=== PATIENT | male | born 1960 | race Caucasian/White ===

== ENCOUNTER → 2018-09-14 | Outpatient (CLI) | payer OTHER | LOC: YCFC.O 09-13 11:41 | PROVIDERS: ATTEND Family Medicine | DX: Z00.00 Encounter for general adult medical examination without abnormal findings (principal); F17.200 Nicotine dependence, unspecified, uncomplicated; R00.1 Bradycardia, unspecified ==

== ENCOUNTER → 2018-10-25 | Outpatient (CLI) | payer OTHER ==
--- NOTE | 2018-10-25 16:53 | CT ---
Procedure: CT LUNG SCREENING Exam Date: 10/25/2018. Ordering Provider: Kwasi Boyer Clinical Indication: PERSONAL HISTORY OF TOBACCO USE 40 pack year cigarette smoking. Current cigarette smoker. This patient meets eligibility criteria for low-dose CT lung cancer screening. Comparison: None. Technique: Using a multislice scanner, sequential helical axial imaging was obtained in the thorax, 2.5 mm thickness, 2.5 mm separation, from the level of the thoracic inlet through the lung bases without IV contrast. A low dose protocol was utilized for BMI less than 30: BMI: 20.3.. CTDI: 1.76 mGy. 120. kVp. 45 mA. DLP: 65.57 mGy-centimeters. 2D sagittal and coronal reconstructed images, 6.0 mm thickness, were obtained. This exam was performed according to our departmental dose optimization program which includes use of automated exposure control, adjustment of the mA and/or kV according to patient size and/or use of iterative reconstruction technique. Nodule measurements under 10 mm are given as mean value of 3 axes diameters. FINDINGS: Lungs and large airways: Bilateral small dilated airspaces in the upper lung downs. Subpleural posterior 5 nodule right upper lobe. Irregular region of increased density, with solid component measuring approximately 2.1 x 1.4 cm. Scarring versus mass versus infiltrate posterior medial recess of the right lower lobe on axial series 2, images 102-105. Minimal extension to the pleura. Pleural-parenchymal scarring inferior lingula. Pleura and space: Apical pleural thickening. Bilateral scattered focal pleural thickening. No effusion or pneumothorax. Mediastinum and moriah: evaluation limited by low dose technique and lack of IV contrast. No enlarged nodes or dominant soft tissue masses. Heart and great vessels: Coronary artery calcification. Minimal aortic and brachiocephalic vessel calcification. Chest wall, lower neck, axillae: Evaluation also limited by same factors as described above. Bilateral axillary lymph nodes mostly appearing nonreactive with 2-3 reactive appearing nodes in the right axilla and 1-2 reactive appearing nodes in the left axilla. These nodes range in size from 2.5 cm to 1 cm. Upper abdomen: Evaluation limited by low-dose technique. No free air or fluid in the included peritoneal space. Osseous structures: Evaluation limited by low dose MIP technique. Minimal levoscoliosis upper thoracic spine and minimal spondylosis. No lytic or blastic lesions. IMPRESSION: 1. Mass versus infiltrate versus scar in the posterior recess of the right lower lobe with solid component measuring approximately 2.1 cm. Minimal dilated airspaces in the bilateral upper lobes. Calcified granuloma. [facility] Best Practice recommendations:. Please see below for Lung RADS category and FOLLOW-UP.* *Lung RADS category Category 4BS - Very Suspicious - findings for which additional diagnostic testing and/or tissue sampling is recommended (greater than 15% malignancy probability). Nodules: Solid nodule(s) 15mm (1767.1 mm3) or larger at baseline, OR new or growing, and 8mm (268.1 mm3) or larger solid nodule. Part solid nodule(s) with a solid component 8 mm (268.1 mm3) or greater, OR with a new or growing 4mm (33.5 mm3) or larger solid component. Follow-up: Please return chest CT with or without contrast IN ONE MONTH INTERVAL, PET/CT and/or tissue sampling depending on the "probability of malignancy and comorbidities." PET/CT may be used when there is an 8mm or greater solid component. 2. Lung RADS Modifier S - Clinically Significant or Potentially Clinically Significant Findings (non lung cancer). Bilaterally enlarged axillary lymph nodes. Consider ultrasound evaluation. Electronically signed by: Chris Chavez MD 10/25/2018 4:51 PM CDT
== END ==
LOC: CT 10:25
PROVIDERS: ATTEND Family Medicine
DX: Z87.891 Personal history of nicotine dependence (principal); R91.8 Other nonspecific abnormal finding of lung field

== ENCOUNTER → 2018-12-22 | Outpatient (CLI) | payer OTHER ==
--- NOTE | 2018-12-22 20:48 | US ---
EXAM DESCRIPTION: Soft Tissue,Extremity: ULTRASOUND. CLINICAL HISTORY: 57 years Male AXILLARY LYMPHADENOPATHY COMPARISON: None Available. TECHNIQUE: Transcutaneous scanning: Chavez-scale and Doppler modes. FINDINGS: Right axilla: Slightly circumscribed and lobulated mass with hypoechoic cortex and echogenic central consistent with a lymph node. 1.8 x 1.2 cm. Minimal vascularity in the pedicle to the lymph node. Multiple other lymph nodes are seen which are smaller with well-defined hypoechoic cortex and echogenic hilum. Left axilla: Circumscribed and lobulated lymph node with hypoechoic cortex and echogenic central hilum measuring 2.3 x 1.3 x 1.1 cm. Contains a vascular pedicle. Other lymph nodes also present. IMPRESSION: Bilateral enlarged lymph nodes in the axilla, but typical architecture is maintained bilaterally. Less likely to be reactive from tumor or inflammation. Electronically signed by: Chris Chavez MD 12/22/2018 8:47 PM CDT
== END ==
LOC: US 11:00
PROVIDERS: ATTEND Family Medicine
DX: R59.0 Localized enlarged lymph nodes (principal)

== ENCOUNTER → 2019-01-24 | Outpatient (CLI) | payer OTHER ==
--- NOTE | 2019-01-24 14:32 | RAD ---
EXAM DESCRIPTION: Foot,Right 3 Views CLINICAL HISTORY: FOOT PAIN COMPARISON: None Available. TECHNIQUE: AP, LATERAL, AND OBLIQUE FINDINGS: The visualized bones appear poorly mineralized. No acute fracture or dislocation. Moderate degenerative changes are identified in the first metatarsophalangeal joint. Plantar and posterior calcaneal spurs. The soft tissues appear grossly unremarkable. IMPRESSION: Osteopenia. Moderate osteoarthritis of the first metatarsophalangeal joint. Plantar and posterior calcaneal spurs. Electronically signed by: Mague Medina MD 01/24/2019 2:31 PM CDT
== END ==
LOC: YCFC.O 10:13
PROVIDERS: ATTEND Family Medicine
DX: M19.071 Primary osteoarthritis, right ankle and foot (principal); M77.31 Calcaneal spur, right foot

== ENCOUNTER → 2019-03-13 | Outpatient (CLI) | payer OTHER ==
--- NOTE | 2019-03-13 10:51 | RAD ---
EXAM DESCRIPTION: Left hand, 3 radiographs CLINICAL HISTORY: PAIN IN LEFT HAND FINDINGS/ IMPRESSION: Normal mineralization. Normal alignment No focal demineralization or inflammatory erosion. No fracture or acute osteochondral lesion. Moderate osteoarthritis carpometacarpal joint of the thumb and metacarpal phalangeal joints of the thumb, index and middle finger Mild multifocal interphalangeal osteoarthritis distal greater than proximal. No Electronically signed by: Codey Oshea MD 03/13/2019 10:49 AM [facility]
--- NOTE | 2019-03-13 10:52 | RAD ---
EXAM DESCRIPTION: Hand,Right 3 Views CLINICAL HISTORY: 58 years Male, PAIN IN RIGHT HAND COMPARISON: None. Findings: Three views/radiographs First CMC and STT osteoarthritis. Radiocarpal joint space narrowing. Remote deformity of the fifth metacarpal. Osteopenia. No acute fracture or dislocation is identified. Moderate diffuse MCP and IP asymmetric joint space narrowing, with associated osteophytosis. No aggressive osseous erosion. No soft tissue calcifications. No focal soft tissue swelling. Scattered CMC osteoarthritis. IMPRESSION: Arthropathy of the right hand. No acute osseous abnormality. Electronically signed by: Ayden Ann MD 03/13/2019 10:[address] [facility]
== END ==
LOC: RAD 09:06
PROVIDERS: ATTEND Orthopaedic Surgery
DX: M13.841 Other specified arthritis, right hand (principal); M13.842 Other specified arthritis, left hand

== ENCOUNTER 2019-04-26 05:44 | Day surgery (SDC) | payer OTHER ==
--- NOTE | 2019-04-24 11:38 | RAD ---
EXAM DESCRIPTION: Chest,2 Views CLINICAL HISTORY: smoking hx and having surgery COMPARISON: Previous study August 18, 2018 TECHNIQUE: PA/lateral FINDINGS: There is no acute appearing cardiac or pulmonary abnormality. Heart size is normal with normal pulmonary vascularity. No pleural effusion or pneumothorax. Lungs are clear with no consolidating infiltrate. Lateral view shows intact sternum and T-spine. IMPRESSION: No acute process is identified in the chest. Electronically signed by: Chapin Bajwa MD 04/24/2019 11:36 AM [facility]
[2019-04-26] MEDS ORDERED: LIDOCAINE 1% 10 ML VIAL INJ ONE (08:11)
[2019-04-26] MEDS ORDERED: ceFAZolin SODIUM 1 GM VIAL ONE ×2 (08:11→09:43)
[2019-04-26] MEDS ORDERED: BUPIVACAINE 0.25% INJ 30 ML VIAL INJ ONE (08:11)
[2019-04-26] MEDS ORDERED: VANCOMYCIN HCL INJ 1,000 MG VIAL IVPB ONE (08:11)
[2019-04-26] MEDS ORDERED: SODIUM CHL 0.9% 100ML MINI-BAG 100 ML IVPB ONE (09:43)
[2019-04-26] MEDS ORDERED: LACTATED RINGERS 1,000 ML ONE (09:43)
[2019-04-26] MEDS ORDERED: PROPOFOL 200 MG/20 ML VIAL IV ONE (10:00)
[2019-04-26] MEDS ORDERED: fentaNYL CITRATE INJ 50 MCG/ML AMP ONE (10:15)
[2019-04-26] MEDS ORDERED: MIDAZOLAM INJ 2 MG/2 ML VIAL ONE (10:15)
[2019-04-26] MEDS ORDERED: LACTATED RINGERS 1,000 ML IVS ONE (10:45)
[2019-04-26 11:50] VITALS: O2SAT 99
[2019-04-26 13:10] VITALS: BP 102/57; TEMP 97.4
--- NOTE | 2019-04-28 08:53 | OP ---
DATE OF PROCEDURE: 04/26/19 PREOPERATIVE DIAGNOSIS: 1. Right carpal tunnel syndrome. POSTOPERATIVE DIAGNOSIS: 1. Right carpal tunnel syndrome. PROCEDURE: 1. Carpal tunnel release. SURGEON: Venkat Venegas MD. ORNAMENTAL BRONZE WORKER: Chris Robbins CST, SA-C. ANESTHESIA: Local with sedation. COMPLICATIONS: None. FINDINGS: Thickening of the transverse carpal ligament. INDICATION: Mr. Pan has a history of severe hand pain that has been refractory to conservative measures. Because of his ongoing pain, he has requested operative intervention. After discussing the risks, benefits and alternatives to operative therapy, the patient has given informed consent for carpal tunnel release. PROCEDURE: The patient was brought to the Operating Room and placed in the supine position. Sedation was administered and local anesthetic was injected into the operative area under sterile conditions. After the injection of anesthetic, the arm was sterilely prepped and draped. A longitudinal incision was made directly overlying the transverse carpal ligament and blunt dissection was carried down to the ligament. The transverse carpal ligament was sharply transected along its length and a [place]on elevator was used to ensure complete release of the ligament. Once release had been confirmed, the wound was thoroughly irrigated and the wound was closed with Nylon suture. A sterile dressing was placed and the patient was taken to the Day Surgery Unit. POSTOPERATIVE PLAN: The patient has been encouraged to do range of motion of the digits and will followup with us in two days. #[id number] MTDD
== END 2019-04-26 12:15 | disposition home or self-care (01) ==
LOC: AMB 05:44
PROVIDERS: ATTEND Orthopaedic Surgery
DX: G56.01 Carpal tunnel syndrome, right upper limb (principal); K21.9 Gastro-esophageal reflux disease without esophagitis; I10 Essential (primary) hypertension; F17.210 Nicotine dependence, cigarettes, uncomplicated; Z86.19 Personal history of other infectious and parasitic diseases; Z79.899 Other long term (current) drug therapy
CPT/HCPCS: 01810; 64721; 71046; 80307; 87070; J0690; J2250; J3370; J3490; J7050; J7120

== ENCOUNTER → 2019-05-12 | Outpatient (CLI) | payer OTHER ==
--- NOTE | 2019-05-12 10:08 | CT ---
EXAM DESCRIPTION: Chest w/o Contrast CLINICAL HISTORY: PERSONAL HISTORY OF TOBACCO USE COMPARISON: October 25, 2018 TECHNIQUE: Noncontrast transaxial CT images of the chest are obtained. Low dose screening CT protocol was performed. This exam was performed according to our departmental dose-optimization program, which includes automated exposure control, adjustment of the mA and/or kV according to patient size and/or use of iterative reconstruction technique . FINDINGS: The heart shows severe coronary artery calcifications. Trace pericardial effusion. Mild calcified plaque of the thoracic aorta without aneurysmal dilatation. Mild less than 1 cm mediastinal and hilar lymph nodes are identified. Mildly prominent axillary lymphadenopathy is again seen measuring up to 11 mm short axis on the right similar to previous. Visualized portion of the upper abdomen shows no acute findings. Focal area of lung parenchymal nodular thickening in the posterior right lung base now measures 2.5 x 1.7 cm compared to 2.7 x 1.4 cm on previous exam without significant change given differences in slice selection and patient positioning. Mild centrilobular emphysematous changes to the lungs are seen. Osseous structures show no aggressive bony lesions. Mild spondylitic changes of the spine are seen. IMPRESSION: Focal area of masslike parenchymal thickening in the right posterior lung base is similar in appearance to previous exam more likely representing area of scarring or atelectasis or neoplastic process given the lack of interval change. Recommend continued follow-up in 3 months to document long-term stability. Consider PET/CT exam or tissue sampling. Lung RADS category 4B. Mild centrilobular emphysematous changes to lungs are stable. Severe coronary artery calcifications. Borderline mediastinal and axillary lymph nodes are stable from previous. Electronically signed by: Dayne Dumas MD 05/12/2019 10:07 AM [facility]
== END ==
LOC: CT 08:00
PROVIDERS: ATTEND Family Medicine
DX: R91.1 Solitary pulmonary nodule (principal); J43.9 Emphysema, unspecified; I25.10 Atherosclerotic heart disease of native coronary artery without angina pectoris; F17.200 Nicotine dependence, unspecified, uncomplicated

== ENCOUNTER → 2020-06-05 | Outpatient (CLI) | payer OTHER ==
--- NOTE | 2020-06-06 12:07 | US ---
EXAM DESCRIPTION: Soft Tissue,Extremity: ULTRASOUND. CLINICAL HISTORY: 59 years Male ENLARGED LYMPH NODES palpable mass in bilateral axilla. Covid vaccination one week ago left shoulder COMPARISON: CT scan of the chest May 2019. TECHNIQUE: Transcutaneous scanning: Chavez-scale and Doppler modes. FINDINGS: Scanning at site of palpable masses in the right axilla. Mostly fatty tissue. Circumscribed lymph node with thin cortex and thicker echogenic hilum with total dimension of the node 2.6 x 1.7 x 1.2 cm. Vascular pedicle is present. Circumscribed lymph node with hypoechoic cortex and echogenic hilum measuring 1.2 x 0.7 cm. Nonvascular. Similar size on the prior CT scan. Scanning at site of palpable mass in the left axilla. Circumscribed lymph node similar in appearance to the right hilar lymph nodes measuring 2.7 x 1.6 x 1.4 cm with prominent hilum which is vascular. Slightly larger compared to lymph node seen on the prior CT scan. Second lymph node measures 1.4 x 1.0 cm with normal-sized hilum, minimally vascular. Slightly larger compared to lymph node seen on the prior CT scan. Normal appearance of vascular structures seen by color Doppler. No dominant solid mass, no distinct cyst, no fluid collection, no large calcifications bilaterally.. IMPRESSION: 1. Bilateral lymph nodes which do not appear reactive. Right axillary lymph nodes appear stable since the prior CT scan one year ago. Left axillary lymph nodes are slightly larger but not reactive. This may be result of recent COVID 19 vaccination. 2. Consider re-enrolling patient into low-dose CT lung cancer screening program. Electronically signed by: Chris Chavez MD 06/06/2020 12:05 PM [facility]
== END ==
LOC: LAB.O 11:42
PROVIDERS: ATTEND Family Medicine
DX: Z86.19 Personal history of other infectious and parasitic diseases (principal); Z13.220 Encounter for screening for lipoid disorders; R53.83 Other fatigue; Z12.5 Encounter for screening for malignant neoplasm of prostate; R59.0 Localized enlarged lymph nodes
CPT/HCPCS: 36415; 76882; 80053; 80061; 84443; 85025; G0103